=== PATIENT | male | born 2005 | race African-American/Black ===

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

== ENCOUNTER 2024-01-25 23:50 | Emergency (ER) | payer OTHER ==
[~2024-01-25] VITALS: Ht 175.3 cm; Wt 63.5 kg
[2024-01-25 23:53] VITALS: BP_SYST 130; PULSE 116; RESP 16; TEMP 98.2; O2SAT 99
[2024-01-26 01:59] LABS: BILIRUBIN,URINE NEGATIVE (NEGATIVE); COLOR,URINE YELLOW (YELLOW); GLUCOSE,URINE NEGATIVE (NEGATIVE); KETONES,URINE NEGATIVE (NEGATIVE); LEUKOCYTE ESTERASE ,URINE NEGATIVE (NEGATIVE); NITRITE, URINE NEGATIVE (NEGATIVE); PROTEIN URINE NEGATIVE (NEGATIVE)
[2024-01-26 02:06] LABS: BASOPHILS # (AUTO) 0.2 K/uL (0.0-0.2); EOSINOPHILS # (AUTO) 0.1 K/uL (0.0-0.4); EOSINOPHILS % (AUTO) 0.7 % (0.0-4.0); HEMATOCRIT 44.1 % (36-54); HEMOGLOBIN 14.9 g/dL (14.0-18.0); MEAN CORPUSCULAR HEMOGLOBIN 29 pg (27-31); MEAN CORPUSCULAR HGB CONC 34 % (32-36); MEAN CORPUSCULAR VOLUME 87 fL (79.0-98.0); MONOCYTES # (AUTO) 0.7 K/uL (0.0-1.0); MONOCYTES % (AUTO) 5.5 % (1.7-9.3); NEUTROPHILS % (AUTO) 83.8 % (40.0-70.0); PLATELET COUNT (AUTO) 315 K/uL (130-430); RED BLOOD CELL COUNT(AUTO) 5.08 MIL/uL (4.2-6.2); RED CELL DISTRIBUTION WIDTH 13.6 % (9.0-15.0); WHITE BLOOD COUNT (AUTO) 11.9 K/uL (4.5-11.0)
[2024-01-26 02:10] LABS: BACTERIA,URINE None Seen /HPF (None Seen); BLOOD, URINE TRACE (NEGATIVE); CLARITY/URINE HAZY (CLEAR); WBC,URINE 0-3 /HPF (0-3)
[2024-01-26 02:14] LABS: BARBITURATE, URINE NEGATIVE (NEG <=200); BENZODIAZEPINE, URINE NEGATIVE (NEG <=150); CANNABINOID, URINE NEGATIVE (NEG <=50); COCAINE, URINE NEGATIVE (NEG <=150); METHAMPHETAMINES SCREEN,URINE NEGATIVE (NEG <=500); OPIATE, URINE NEGATIVE (NEG <=100); PHENCYCLIDINE SCREEN,URINE NEGATIVE (NEG <=25); UR TRICYCLIC ANTIDEPRESSANTS NEGATIVE (NEG <=300); URINE AMPHETAMINE NEGATIVE (NEG <=500); URINE METHADONE NEGATIVE (NEG <=200); URINE OXYCODONE SCREEN NEGATIVE (NEG <=100)
[2024-01-26 02:15] LABS: ALANINE AMINOTRANSFERASE 28 U/L (12-78); ALBUMIN 4.4 g/dL (3.4-4.8); ANION GAP 13 (5-15); ASPARTATE AMINOTRANSFERASE 24 U/L (10-37); BILIRUBIN,DIRECT 0.1 mg/dL (0.0-0.3); CALCIUM 9.4 mg/dL (8.4-11.0); CARBON DIOXIDE 25 mmol/L (23-29); CHLORIDE 105 mmol/L (98-107); GFR AFRICAN AMERICAN 124 mL/min (>90); GLUCOSE 105 mg/dL (74-106); POTASSIUM 3.8 mmol/L (3.5-5.1); SODIUM SERUM 143 mmol/L (136-145); TOTAL BILIRUBIN 0.3 mg/dL (0.0-1.0); TOTAL PROTEIN, SERUM 8.6 g/dL (6.4-8.3); UREA NITROGEN, BLOOD 9 mg/dL (8-21)
[2024-01-26 02:17] LABS: GFR NON AFRICAN-AMERICAN 102 mL/min (>90)
[2024-01-26 03:12] LABS: THYROID STIMULATING HORMONE 1.61 uIu/mL (0.36-3.74)
[2024-01-26 03:47] LABS: CREATINE KINASE, TOTAL 156 U/L (39-308)
[2024-01-26] MEDS: NACL 0.9% 1,000 ML IV ONE (04:18)
[2024-01-26 05:08] VITALS: BP_SYST 129; PULSE 79; RESP 23; TEMP 98.2; O2SAT 98
== END 2024-01-26 05:08 | disposition home or self-care (01) ==
LOC: SED 23:50
DX: R07.9 Chest pain, unspecified (principal); R00.2 Palpitations; F41.9 Anxiety disorder, unspecified; Z79.899 Other long term (current) drug therapy
CPT/HCPCS: 36415; 71046; 80048; 80076; 80307; 81000; 81001; 81015; 82550; 83874; 83880; 84439; 84443; 84484; 85025; 85379; 85610; 85730; 93005; 96360; 99285; J7030